=== PATIENT | female | born 1945 | race Caucasian/White ===

== ENCOUNTER → 2020-01-05 | Outpatient (CLI) | payer MEDICARE ==
[2020-01-05 17:52] LABS: HCT 37.4 % (34.0-46.0); HGB 12.2 gm/dL (11.4-16.0); MCH 31.5 pg (25.0-35.0); MCHC 32.7 g/dL (31.0-37.0); MCV 96.1 fL (80.0-100.0); Mean Platelet Volume 8.9; Platelet Count 197 k/uL (150-450); RBC 3.89 m/uL (3.80-5.40); RDW 13.7 % (11.5-15.5); WBC 8.1 k/uL (3.8-10.6)
[2020-01-05 23:49] LABS: African American GFR (CKD) 63.4 (60.0-200.0); Anion Gap 7.8 mmol/L (4.00-12.00); Carbon Dioxide 27.2 mmol/L (21.6-31.8); Non-African American GFR(CKD) 54.7 (60.0-200.0); Potassium 3.9 mmol/L (3.5-5.5)
== END | disposition home or self-care (01) ==
LOC: LABWHC1 16:40
PROVIDERS: ATTEND Internal Medicine Interventional Cardiology
DX: I50.9 Heart failure, unspecified (principal)
CPT/HCPCS: 36415; 80048; 83735; 85027

== ENCOUNTER 2020-01-10 07:40 | Inpatient (IN) | payer MEDICARE ==
[~2020-01-10 07:40] MED LIST: ALPRAZolam 0.25 MG TAB PO PRN; ALPRAZolam 0.5 MG TAB PO PRN; ASPIRIN 325 MG TAB PO STA; ATORVASTATIN 80 MG TAB PO STA; NITROGLYCERIN SL TABS 0.4 MG TAB SUBLINGUAL PRN; SODIUM CHLORIDE 0.9% 1,000 ML in EMPTY BAG 1 BAG IV ONE
[2020-01-10] MEDS ORDERED: SODIUM CHLORIDE 0.9% 1,000 ML IV ONE (08:13)
[2020-01-10] MEDS ORDERED: LIDOCAINE 1% INJ 10MG/ML (20 ML MDV) ONE (09:08)
[2020-01-10] MEDS: MIDAZOLAM 2 MG/2 ML VIAL IVP ONE ×2 (09:40→09:46)
[2020-01-10] MEDS ORDERED: LIDOCAINE 1% INJ 10MG/ML (20 ML MDV) SQ ONE (09:45)
[2020-01-10] MEDS ORDERED: HEPARIN SODIUM 1,000 UN/ML (10ML VL) ONE (09:45)
[2020-01-10] MEDS ORDERED: HYDROmorphone 1 MG/ML 1 ML SYRINGE ONE (10:05)
[2020-01-10] MEDS ORDERED: HYDROmorphone 1 MG/ML 1 ML SYRINGE IVP ONE (10:13)
[2020-01-10] MEDS ORDERED: IOPAMIDOL-370 100ML BTL INJ ONE ×2 (10:42→11:11)
[2020-01-10] MEDS ORDERED: NITROGLYCERIN 1000MCG/10ML SYRINGE INTRACORON ONE (10:50)
[2020-01-10] MEDS ORDERED: ADENOSINE 90 MG in SODIUM CHLORIDE 0.9% 60 ML IVP ONE (10:52)
[2020-01-10] MEDS ORDERED: CLOPIDOGREL 75 MG TAB PO ONE (11:09)
[2020-01-10] MEDS ORDERED: CLOPIDOGREL 75 MG TAB ONE (11:09)
[2020-01-10] MEDS ORDERED: NITROGLYCERIN SL TABS 0.4 MG TAB SUBLINGUAL PRN (11:32)
[2020-01-10] MEDS ORDERED: ZOLPIDEM 5 MG TAB PO PRN (11:32)
[2020-01-10] MEDS ORDERED: MAG HYDROX/AL HYDROX/SIMETH 30 ML CUP PO PRN (11:32)
[2020-01-10] MEDS ORDERED: RX INFO: IV CONTRAST WAS GIVEN 1 EACH MISC MISCELLANE PRN (11:32)
[2020-01-10] MEDS ORDERED: ATROPINE SULFATE 0.1 MG/ML 10ML SYRINGE IV PRN (11:32)
--- NOTE | 2020-01-10 12:23 | PTCA ---
PERCUTANEOUSTRANS CORORONARY ANGIOGRAPHY DATE OF SERVICE: 01/10/2020. PROCEDURE: 1. Selective coronary angiography of left coronary artery. 2. Fractional flow reserve assessment of major diagonal branch of LAD. 3. Impella heart pump placement from left femoral approach. 4. PTCA and stenting of a long calcified mid LAD lesion with a drug-eluting stent. PERFORMED BY: Dr. Nayely Juarez. Moderate conscious sedation time was 94 minutes. Patient was administered Versed. Oxygen saturation, hemodynamics and EKG were monitored closely. CLINICAL INFORMATION: Mrs. Root is a 74-year-old lady with a previous history of alcoholism, came into see me with florid congestive heart failure after optimizing the CHF management. Echo revealed ejection fraction of about less than 20%. Subsequently, within a couple of months improved up to 20% to 25%. Then, I performed coronary angiography which revealed a 99% mid LAD calcified lesion and a moderate lesion in the major diagonal branch. She was advised intervention of the LAD with a heart pump Impella support. She was brought in for the procedure electively after extensive discussion with the patient and family members regarding the rationale, risks, benefits, and options. PROCEDURE NOTE: Under strict aseptic precautions and local anesthesia, a 6-Cymro introducer was placed in the right femoral artery and left femoral artery. From the left femoral artery, I advanced a wire and preclosed with 2 Perclose devices at the 10 o'clock and 2 o'clock position and both of the sutures were kept to the side. The 6-Cymro sheath was exchanged over 8-Cymro sheath and then eventually a 13-Cymro sheath was placed uneventfully. Under fluoroscopic guidance, using the standard protocol, Impella was in position in the left ventricular cavity with an excellent cardiac output of about 2.3 to 2.4 L with good waveforms. Subsequently I turned my attention for intervention from the right femoral approach. I used a JL3.5 guide catheter to cannulate the left coronary artery and used a long run- through wire to cross the lesion. A 2.5, 12 mm NC Trek balloon was used to pre-dilate the lesion. A 23 mm long 2.5 caliber Xience stent was deployed at 12 atmospheres with excellent angiographic result. The patient had no chest discomfort, but precordial ST elevation was noted even though there was underlying IVCD. I then advanced a Verrata wire under fluoroscopic guidance into the major diagonal branch, it is more larger branch. I performed an iFR which was 0.87. I then performed an FFR which was 0.81. Basically with these numbers and moderate lesion, I felt this was not critical and therefore I did not perform intervention of the major diagonal branch. The patient's clinical picture may be a combination of ischemic and more importantly nonischemic cardiomyopathy as well. The wires were taken out. Guide catheter was taken out. The Impella was taken out under fluoroscopic guidance and Perclose devices were deployed. The suture was pushed all the way to the surface of the artery. Hemostasis was secured after some manual pressure and eventually FemoStop was applied. Excellent hemostasis was secured. From the right femoral approach, there was a hematoma over the 6-Cymro sheath. This was addressed with some manual compression and then an Angio-Seal device was used to secure hemostasis. The patient received heparin intravenously of about 4500 units. ACT was 271. She also received 600 mg of Plavix. Excellent angiographic result without complication was achieved. Patient was sent to the room in a stable condition with a FemoStop over the left femoral arterial puncture site at 40 mmHg. Excellent angiographic result without complication was achieved. Findings were discussed with the patient and family members. The patient had an excellent protected PCI with the Impella support of mid LAD and the lesion in the diagonal was moderate noncritical FFR of 0.81 and iFR of 0.87. This was explained to the patient and family and I expect she will be discharged the next 24 to 48 hours. DALIA / DARRYNN: [id number] /
[2020-01-10 13:29] LABS: Basophils % (A) 1 %; Eosinophils # (A) 0.2 k/uL (0-0.7); Eosinophils % (A) 3 %; HCT 29.9 % (34.0-46.0); Lymphocytes # (A) 1.7 k/uL (1.0-4.8); Lymphocytes % (A) 28 %; MCH 31.3 pg (25.0-35.0); MCHC 33.4 g/dL (31.0-37.0); MCV 93.8 fL (80.0-100.0); Mean Platelet Volume 9.2; Monocytes # (A) 0.5 k/uL (0-1.0); Monocytes % (A) 8 %; Neutrophils # (A) 3.5 k/uL (1.3-7.7); Neutrophils % (A) 58 %; Platelet Count 219 k/uL (150-450); RBC 3.19 m/uL (3.80-5.40); RDW 13.9 % (11.5-15.5); WBC 6.1 k/uL (3.8-10.6)
[2020-01-10] MEDS: SODIUM CHLORIDE 0.9% 1,000 ML IV SCH (13:29)
[2020-01-10 13:35] LABS: Glucose,Whole Blood 129 mg/dL (75-99)
[2020-01-10] MEDS: NOREPINEPHRINE 4 MG in SODIUM CHLORIDE 0.9% 250 ML IV SCH (17:55)
[2020-01-10] MEDS: METOPROLOL TARTRATE 25 MG TAB PO SCH ×2 (19:11→23:47)
[2020-01-10] MEDS: ATORVASTATIN 80 MG TAB PO SCH (21:12)
[2020-01-10] MEDS: hydrALAZINE HCL 25 MG TAB PO SCH (23:46)
[2020-01-10] MEDS: LOSARTAN 25 MG TAB PO SCH (23:47)
[2020-01-11] MEDS: SODIUM CHLORIDE 0.9% 1,000 ML IV SCH (04:16)
[2020-01-11 05:09] LABS: Basophils % (A) 1 %; Eosinophils # (A) 0.2 k/uL (0-0.7); Eosinophils % (A) 2 %; HCT 26.6 % (34.0-46.0); HGB 8.9 gm/dL (11.4-16.0); Lymphocytes # (A) 1.6 k/uL (1.0-4.8); Lymphocytes % (A) 23 %; MCH 31.6 pg (25.0-35.0); MCHC 33.5 g/dL (31.0-37.0); MCV 94.2 fL (80.0-100.0); Mean Platelet Volume 8.8; Monocytes # (A) 0.5 k/uL (0-1.0); Monocytes % (A) 8 %; Neutrophils # (A) 4.4 k/uL (1.3-7.7); Neutrophils % (A) 64 %; Platelet Count 212 k/uL (150-450); RBC 2.83 m/uL (3.80-5.40); RDW 13.9 % (11.5-15.5)
[2020-01-11 05:20] LABS: Calcium 8.3 mg/dL (8.4-10.2); Potassium 3.9 mmol/L (3.5-5.1)
[2020-01-11] MEDS ORDERED: ASPIRIN 81 MG PO SCH (09:00)
[2020-01-11] MEDS: CLOPIDOGREL 75 MG TAB PO SCH (09:40)
[2020-01-11] MEDS: ASPIRIN 81 MG PO SCH (09:40)
[2020-01-11] MEDS: FUROSEMIDE 20 MG TAB PO SCH (09:40)
[2020-01-11] MEDS: METOPROLOL TARTRATE 25 MG TAB PO SCH ×3 (09:41→22:31)
[2020-01-11] MEDS: ISOSORBIDE MONONITRATE ER 15 MG TAB PO SCH (09:41)
[2020-01-11] MEDS: hydrALAZINE HCL 25 MG TAB PO SCH ×2 (09:41→20:31)
--- NOTE | 2020-01-11 10:19 | PN ---
PROGRESS NOTE Mrs. Root is a 74-year-old lady with a cardiomyopathy a combination of ischemic and nonischemic. Ejection fraction is in the 20% to 25% range. Yesterday she was brought in for elective PCI of LAD with Impella support. Procedure was performed uneventfully. She also had an FFR of the major diagonal branch that did not reveal to be significant. FFR was 0.81. Stenting of LAD was accomplished with a drug-eluting stent with excellent result. Postprocedure course was uneventful. Both groins are clean and dry with a good pulse. EKG revealed a sinus mechanism with left bundle. Labs are unremarkable except for drop in hemoglobin, which was not unexpected given the hematoma that she had on the right side. However, both groins are clean and dry. Patient is doing well. She is asymptomatic. Blood pressure 120/70, pulse rate 70 per minute. JVD of 1 cm. No carotid bruit. S1, S2 with a short systolic murmur is audible. Lungs are clear. Abdomen is soft. Both groins are clean and dry with good pulses. Distal pulses are palpable. Central nervous system is unremarkable. Plan is to increase activity. Continue current medications, move her to telemetry today and possible discharge tomorrow. Advised to continue current medical regimen. Discussed my thoughts with the patient. MMODL / IJN: [id number] /
[2020-01-11] MEDS: NOREPINEPHRINE 4 MG in SODIUM CHLORIDE 0.9% 250 ML IV SCH (10:33)
[2020-01-11 10:36] VITALS: BMI 23.8
[2020-01-11] MEDS: LOSARTAN 25 MG TAB PO SCH (20:31)
[2020-01-11] MEDS: ATORVASTATIN 80 MG TAB PO SCH (20:31)
[2020-01-12 04:37] LABS: Basophils # (A) 0.1 k/uL (0-0.2); Basophils % (A) 2 %; Eosinophils # (A) 0.3 k/uL (0-0.7); Eosinophils % (A) 4 %; HCT 28.1 % (34.0-46.0); HGB 9.3 gm/dL (11.4-16.0); Lymphocytes # (A) 1.8 k/uL (1.0-4.8); Lymphocytes % (A) 26 %; MCH 31.2 pg (25.0-35.0); MCHC 33.1 g/dL (31.0-37.0); MCV 94.1 fL (80.0-100.0); Mean Platelet Volume 9.3; Monocytes # (A) 0.6 k/uL (0-1.0); Monocytes % (A) 8 %; Neutrophils % (A) 58 %; Platelet Count 182 k/uL (150-450); RBC 2.99 m/uL (3.80-5.40); WBC 6.9 k/uL (3.8-10.6)
[2020-01-12 04:45] LABS: Calcium 8.5 mg/dL (8.4-10.2); Potassium 3.9 mmol/L (3.5-5.1)
[2020-01-12] MEDS: ISOSORBIDE MONONITRATE ER 15 MG TAB PO SCH (07:42)
[2020-01-12] MEDS: CLOPIDOGREL 75 MG TAB PO SCH (07:42)
[2020-01-12] MEDS: METOPROLOL TARTRATE 25 MG TAB PO SCH (07:42)
[2020-01-12] MEDS: NOREPINEPHRINE 4 MG in SODIUM CHLORIDE 0.9% 250 ML IV SCH (07:43)
[2020-01-12] MEDS: hydrALAZINE HCL 25 MG TAB PO SCH (07:43)
[2020-01-12] MEDS: ASPIRIN 81 MG PO SCH (07:43)
[2020-01-12] MEDS: FUROSEMIDE 20 MG TAB PO SCH (07:43)
[2020-01-12 08:44] VITALS: BP 119/40; PULSE 70; RESP 27; TEMP 98.2
--- NOTE | 2020-01-12 11:19 | DS ---
DISCHARGE SUMMARY DATE OF ADMISSION: 01/10/2020 DATE OF DISCHARGE: 01/12/2020. DIAGNOSES: 1. Ischemic and nonischemic cardiomyopathy with ejection fraction of less than 25%. 2. Coronary artery disease with significant disease in the LAD system. PROCEDURES PERFORMED: Heart pump Impella supported PCI of LAD with a drug-eluting stent. Mrs. Root was hospitalized electively for PCI of LAD and FFR of the major diagonal branch. PCI was performed uneventfully with excellent result. FFR was unremarkable for the diagonal which was a large caliber, large distribution bifurcation vessel. Impella was placed from the left groin. Procedure was performed from the right groin. Both the groins are clean and dry. Patient is ambulating without symptoms. Vital signs are stable. No JVD. S1, S2 heard normally. Lungs revealed decent air entry. Abdomen and lower extremity exam unchanged. Bilateral groins are clean and dry with good pulses distally and in the femorals. The patient will be discharged today on dual antiplatelet therapy, statins, and I will see her in the office tomorrow afternoon in [place]. Discharge instructions regarding activity, diet and medications were given. MMODL / IJN: [id number] /
== END 2020-01-12 12:18 | disposition home or self-care (01) | DRG 215 ==
LOC: CATHCVL 07:40 → 2SICU 11:15 → CATHCVL 12:31 → 2SICU 16:38
PROVIDERS: ADMIT Internal Medicine Interventional Cardiology; ATTEND Internal Medicine Interventional Cardiology
DX: I42.8 Other cardiomyopathies (principal); I50.22 Chronic systolic (congestive) heart failure; I11.0 Hypertensive heart disease with heart failure; I25.10 Atherosclerotic heart disease of native coronary artery without angina pectoris; I25.5 Ischemic cardiomyopathy; R01.1 Cardiac murmur, unspecified; Z79.82 Long term (current) use of aspirin; Z79.899 Other long term (current) drug therapy
CPT/HCPCS: 80048; 85025; 85347; 93571; C1874